=== PATIENT | male | born 1945 | race Caucasian/White ===

== ENCOUNTER → 2019-12-16 15:39 | Outpatient (CLI) | payer MEDICARE, OTHER, SELFPAY | PROVIDERS: Referring Provider Internal Medicine Gastroenterology; Visit Provider Internal Medicine Gastroenterology | DX: Z86.010 Personal history of colon polyps (principal) ==

== ENCOUNTER → 2019-12-17 12:30 | Outpatient (CLI) | payer MEDICARE, OTHER, SELFPAY ==
--- NOTE | 2019-12-16 13:15 | COLBX_PTH ---
PATIENT: GRACE REYNOSO LOC: [facility] U#:[id number] AGE/SX: 79/M ROOM: RE12/17/[address]: Dr. Manny Linda MD : [id number] BED: DIS: SPEC #: [id number] RECD: 12/17/19 12:31 STATUS: SHANNAN SANTANA #: [id number] MEAGHAN: 12/16/19 13:[address]: Manny Linda DEPT: SURGICAL PATHOLOGY RECD BY: Simeon Pressley ENTERED: 12/17/19 12:42 SP TYPE: COLON BX OTHR DR: CHRIS Tissues: Sigmoid colon biopsy Procedures: Surgery Specimen Level IV HEADER OPERATION: Colonoscopy with biopsy PRE-OP DIAGNOSIS: High risk screening / history of polyps TISSUE SUBMITTED: Sigmoid 20 cm polyp biopsy, rule out adenoma MICROSCOPIC DIAGNOSIS Sigmoid polyp at 20 cm, biopsy: Hyperplastic polyp. ODALYS:cleve 12/18/19 MICROSCOPIC DESCRIPTION Slides are reviewed. GROSS DESCRIPTION Received is one container labeled with the patient's name and not further designated. The specimen consists of one irregular fragment of light meier soft tissue that measures 0.3 x 0.3 x 0.1 cm. The specimen is totally submitted in one cassette. / SJ:rg 12/17/19 TC:1 CPT: 60988
== END ==
PROVIDERS: Visit Provider Internal Medicine Gastroenterology
DX: Z86.010 Personal history of colon polyps (principal)
CPT/HCPCS: 88305

== ENCOUNTER → 2024-08-20 | Outpatient (CLI) | payer MEDICARE, SELFPAY ==
[2024-08-20 12:31] LABS: PSA,Total- Diagnostic 2.75 ng/mL (0.00-4.00)
== END | disposition home or self-care (01) ==
LOC: LAB 09:39
PROVIDERS: PCP Student in an Organized Health Care Education/Training Program; Referring Provider Urology; Visit Provider Urology
DX: N40.1 Benign prostatic hyperplasia with lower urinary tract symptoms (principal)
CPT/HCPCS: 36415; 84153